=== PATIENT | male | born 1975 | race Caucasian/White ===

== ENCOUNTER 2017-10-19 16:37 | Emergency (ER) | payer OTHER ==
[~2017-10-19] VITALS: Ht 172.7 cm; Wt 110.0 kg
[2017-10-19] MEDS ORDERED: MAALOX/HYOSCYAMINE/LIDOCAINE 45 ML BTL PO ONE (17:30)
[2017-10-19 17:50] LABS: BLOOD UREA NITROGEN 15 mg/dL (7-18)
[2017-10-19 17:54] LABS: ASPARTATE AMINO TRANSFERASE 34 U/L (15-37)
[2017-10-19] MEDS ORDERED: MAALOX/HYOSCYAMINE/LIDOCAINE 45 ML BTL ONE (18:04)
[2017-10-19 18:25] LABS: HEMATOCRIT 50.1 % (39.2-51.8); HEMOGLOBIN 17.3 g/dL (13.7-18.0); WHITE BLOOD COUNT 8.7 x10^3/uL (3.4-10)
[2017-10-19] MEDS ORDERED: SODIUM CHLORIDE FLUSH 10ML SYR IVF ONE (18:30)
[2017-10-19] MEDS ORDERED: FAMOTIDINE 20 MG/2 ML IVP ONE (18:30)
[2017-10-19] MEDS ORDERED: FAMOTIDINE 20 MG/2 ML ONE (18:52)
[2017-10-19 18:54] LABS: IS PT STATUS REG ER OR PRE ER? YES
[2017-10-19 20:32] VITALS: BP 131/74
== END 2017-10-19 20:50 | disposition home or self-care (01) ==
LOC: ED 18:49
DX: K29.00 Acute gastritis without bleeding (principal); G89.29 Other chronic pain
CPT/HCPCS: 36415; 74022; 76700; 80053; 83690; 84484; 85025; 93005; 96374; S0028